=== PATIENT | male | born 1960 | race Caucasian/White ===

== ENCOUNTER → 2016-09-05 | Outpatient (CLI) | payer MEDICARE, OTHER ==
[2016-09-05 09:06] LABS: BUN/CREATININE RATIO 13 (0-10)
== END ==
LOC: LAB 08:02
PROVIDERS: Family Medicine
DX: E11.65 Type 2 diabetes mellitus with hyperglycemia (principal); E78.2 Mixed hyperlipidemia
CPT/HCPCS: 36415; 80053; 80061; 82043; 82570; 83036

== ENCOUNTER → 2016-10-31 | Outpatient (CLI) | payer MEDICARE, OTHER ==
[2016-10-31 09:54] LABS: BUN/CREATININE RATIO 19 (0-10)
== END ==
LOC: LAB 08:55
PROVIDERS: Family Medicine
DX: E11.65 Type 2 diabetes mellitus with hyperglycemia (principal)
CPT/HCPCS: 36415; 80048

== ENCOUNTER → 2020-06-03 | Outpatient (CLI) | payer MEDICARE, SELFPAY ==
[~2020-06-03] MED LIST: COUMADIN 5MG TAB5 MG PO; COUMADIN 7.5MG7.5 MG PO; ECOTRIN81 MG PO; GABAPENTIN300 MG PO; HUMALOG100 UNIT/1 SC; LIPITOR TAB 2020 MG PO; LOPRESSOR50 MG PO; NITROGLYCERIN0.4 MG PO; OMEPRAZOLE20 M1 PO; PROVENTIL HFA6.7 GM INH; SYMBICORT 160-1 INHA INH; TOPAMAX50 MG PO; TRESIBA100 UNIT/1 SC; TRULICITY1.5 MG/0.5 SC; TYLENOL 325MG325 MG PO; VISTARIL25 MG PO
== END ==
LOC: KOH-I 12:50
DX: R59.0 Localized enlarged lymph nodes (principal)
CPT/HCPCS: 76536

== ENCOUNTER → 2020-08-19 | Outpatient (CLI) | payer MEDICARE, SELFPAY | LOC: WCC 09:39 | PROC: 0JB70ZZ Excision of Back Subcutaneous Tissue and Fascia, Open Approach (ICD-10-PCS; principal; 2020-08-19) | DX: I96 Gangrene, not elsewhere classified (principal); L89.312 Pressure ulcer of right buttock, stage 2; E11.52 Type 2 diabetes mellitus with diabetic peripheral angiopathy with gangrene; E11.628 Type 2 diabetes mellitus with other skin complications; I10 Essential (primary) hypertension; J44.9 Chronic obstructive pulmonary disease, unspecified; G47.30 Sleep apnea, unspecified; L89.152 Pressure ulcer of sacral region, stage 2; E11.36 Type 2 diabetes mellitus with diabetic cataract; H26.9 Unspecified cataract; I25.10 Atherosclerotic heart disease of native coronary artery without angina pectoris; I25.2 Old myocardial infarction; E11.40 Type 2 diabetes mellitus with diabetic neuropathy, unspecified; M19.90 Unspecified osteoarthritis, unspecified site; I48.91 Unspecified atrial fibrillation; E66.01 Morbid (severe) obesity due to excess calories; Z68.35 Body mass index [BMI] 35.0-35.9, adult; Z79.2 Long term (current) use of antibiotics; Z79.4 Long term (current) use of insulin; Z79.891 Long term (current) use of opiate analgesic; Z79.899 Other long term (current) drug therapy; Z87.891 Personal history of nicotine dependence | CPT/HCPCS: G0463 ==

== ENCOUNTER → 2020-08-28 | Outpatient (CLI) | payer MEDICARE | LOC: WCC 08:04 | DX: E11.622 Type 2 diabetes mellitus with other skin ulcer (principal); L89.312 Pressure ulcer of right buttock, stage 2; I10 Essential (primary) hypertension; J44.9 Chronic obstructive pulmonary disease, unspecified; E66.01 Morbid (severe) obesity due to excess calories; G47.30 Sleep apnea, unspecified; Z79.4 Long term (current) use of insulin ==

== ENCOUNTER → 2020-09-08 | Outpatient (CLI) | payer MEDICARE, SELFPAY | LOC: WCC 13:28 | PROC: 0JB90ZZ Excision of Buttock Subcutaneous Tissue and Fascia, Open Approach (ICD-10-PCS; principal; 2020-09-08) | DX: I96 Gangrene, not elsewhere classified (principal); L89.312 Pressure ulcer of right buttock, stage 2; E11.52 Type 2 diabetes mellitus with diabetic peripheral angiopathy with gangrene; E11.628 Type 2 diabetes mellitus with other skin complications; I10 Essential (primary) hypertension; J44.9 Chronic obstructive pulmonary disease, unspecified; G47.30 Sleep apnea, unspecified; E11.36 Type 2 diabetes mellitus with diabetic cataract; H26.9 Unspecified cataract; I49.9 Cardiac arrhythmia, unspecified; I25.10 Atherosclerotic heart disease of native coronary artery without angina pectoris; I25.2 Old myocardial infarction; E11.40 Type 2 diabetes mellitus with diabetic neuropathy, unspecified; M19.90 Unspecified osteoarthritis, unspecified site; E66.01 Morbid (severe) obesity due to excess calories; Z68.35 Body mass index [BMI] 35.0-35.9, adult; Z79.2 Long term (current) use of antibiotics; Z79.899 Other long term (current) drug therapy; Z79.4 Long term (current) use of insulin ==

== ENCOUNTER → 2020-09-18 | Outpatient (CLI) | payer MEDICARE, OTHER | LOC: WCC 10:15 | DX: E11.628 Type 2 diabetes mellitus with other skin complications (principal); L89.312 Pressure ulcer of right buttock, stage 2; I10 Essential (primary) hypertension; E66.01 Morbid (severe) obesity due to excess calories; J44.9 Chronic obstructive pulmonary disease, unspecified; G47.30 Sleep apnea, unspecified; Z79.4 Long term (current) use of insulin | CPT/HCPCS: G0463 ==

== ENCOUNTER → 2020-09-25 | Outpatient (CLI) | payer MEDICARE, SELFPAY, OTHER | LOC: WCC 09:56 | DX: L89.312 Pressure ulcer of right buttock, stage 2 (principal); E11.628 Type 2 diabetes mellitus with other skin complications; E66.01 Morbid (severe) obesity due to excess calories; I10 Essential (primary) hypertension; J44.9 Chronic obstructive pulmonary disease, unspecified; G47.30 Sleep apnea, unspecified; Z79.4 Long term (current) use of insulin; Z68.35 Body mass index [BMI] 35.0-35.9, adult | CPT/HCPCS: G0463 ==

== ENCOUNTER → 2020-10-21 | Outpatient (CLI) | payer MEDICARE ==
[2020-10-21 13:49] LABS: BUN/CREATININE RATIO 26 (0-10)
== END ==
LOC: LAB 11:28
PROVIDERS: Family Medicine
DX: Z13.21 Encounter for screening for nutritional disorder (principal); E11.9 Type 2 diabetes mellitus without complications; E78.2 Mixed hyperlipidemia; I10 Essential (primary) hypertension; K21.9 Gastro-esophageal reflux disease without esophagitis; Z79.899 Other long term (current) drug therapy
CPT/HCPCS: 36415; 80053; 80061; 82043; 82570; 82607; 83036; 83735

== ENCOUNTER → 2021-01-19 | Outpatient (CLI) | payer MEDICARE | LOC: EXRD 13:00 | DX: R59.1 Generalized enlarged lymph nodes (principal) | CPT/HCPCS: 76536 ==

== ENCOUNTER → 2021-02-16 | Outpatient (CLI) | payer MEDICARE ==
[2021-02-16 15:27] LABS: BUN/CREATININE RATIO 13 (0-10)
== END ==
LOC: LAB 13:38
PROVIDERS: Family Medicine
DX: E55.9 Vitamin D deficiency, unspecified (principal); E78.2 Mixed hyperlipidemia; E11.9 Type 2 diabetes mellitus without complications; I10 Essential (primary) hypertension; K21.9 Gastro-esophageal reflux disease without esophagitis; R35.1 Nocturia; Z12.5 Encounter for screening for malignant neoplasm of prostate; Z79.4 Long term (current) use of insulin; Z79.899 Other long term (current) drug therapy
CPT/HCPCS: 36415; 80053; 80061; 82607; 83036; 83735; G0103

== ENCOUNTER → 2021-04-06 | Outpatient (CLI) | payer MEDICARE | LOC: KOH-I 10:04 | DX: R59.1 Generalized enlarged lymph nodes (principal) | CPT/HCPCS: 76536 ==

== ENCOUNTER → 2021-04-19 | Outpatient (CLI) | payer MEDICARE ==
[2021-04-19 12:04] LABS: BUN/CREATININE RATIO 17 (0-10)
== END ==
LOC: LAB 09:46
PROVIDERS: Family Medicine
DX: E55.9 Vitamin D deficiency, unspecified (principal); E78.2 Mixed hyperlipidemia; E11.9 Type 2 diabetes mellitus without complications; I10 Essential (primary) hypertension; K21.9 Gastro-esophageal reflux disease without esophagitis; Z12.5 Encounter for screening for malignant neoplasm of prostate; Z79.899 Other long term (current) drug therapy; R35.1 Nocturia
CPT/HCPCS: 36415; 80053; 80061; 82607; 83036; 83735; G0103

== ENCOUNTER → 2021-04-27 | Outpatient (CLI) | payer MEDICARE ==
[2021-04-27 10:31] LABS: BUN/CREATININE RATIO 14 (0-10)
== END ==
LOC: LAB 08:42
PROVIDERS: Internal Medicine Nephrology
DX: N17.9 Acute kidney failure, unspecified (principal); E78.5 Hyperlipidemia, unspecified
CPT/HCPCS: 36415; 80053; 82550; 82570; 84156

== ENCOUNTER → 2021-07-27 | Outpatient (CLI) | payer MEDICARE | LOC: KOH-I 12:44 | DX: R59.1 Generalized enlarged lymph nodes (principal) | CPT/HCPCS: 76536 ==

== ENCOUNTER 2021-08-02 13:41 | Inpatient (IN) | payer MEDICARE ==
[~2021-08-02] VITALS: Ht 185.4 cm; Wt 117.9 kg
[~2021-08-02 13:41] MED LIST changes: -COUMADIN 5MG TAB5 MG PO; -GABAPENTIN300 MG PO; +GABAPENTIN600 MG PO; -HUMALOG100 UNIT/1 SC; +HUMALOG100 UNIT/1 SQ; +LOPRESSOR 25 MG25 MG PO; -LOPRESSOR50 MG PO; -TRESIBA100 UNIT/1 SC; +TRESIBA100 UNIT/1 SQ; -TRULICITY1.5 MG/0.5 SC; +TRULICITY1.5 MG/0.5 SQ; +WARFARIN SODIUM5 MG PO
[2021-08-02 14:38] LABS: HEMOGLOBIN 14.4 gm/dl (14.0-17.5); RED BLOOD COUNT 4.19 M/UL (4.20-5.50); WHITE BLOOD COUNT 4.7 K/UL (4.5-11.0)
[2021-08-02 14:59] LABS: BUN/CREATININE RATIO 12 (0-10)
[2021-08-03 06:52] LABS: HEMOGLOBIN 12.5 gm/dl (14.0-17.5); WHITE BLOOD COUNT 3.9 K/UL (4.5-11.0)
[2021-08-03 06:54] LABS: RED BLOOD COUNT 3.75 M/UL (4.20-5.50)
[2021-08-03 07:16] LABS: BUN/CREATININE RATIO 11 (0-10)
[2021-08-04 06:51] LABS: HEMOGLOBIN 11.8 gm/dl (14.0-17.5); RED BLOOD COUNT 3.55 M/UL (4.20-5.50)
[2021-08-04 06:53] LABS: WHITE BLOOD COUNT 2.6 K/UL (4.5-11.0)
[2021-08-04 07:04] LABS: BUN/CREATININE RATIO 13 (0-10)
[2021-08-04] MEDS ORDERED: FLONASE 0.05% N16 GM (15:24)
[2021-08-04] MEDS ORDERED: AMLODIPINE BESYL5 MG PO (15:24)
[2021-08-04] MEDS ORDERED: DOCUSATE SODIU100 MG PO (15:25)
[2021-08-04] MEDS ORDERED: VITAMIN D31250 MCG PO (15:25)
[2021-08-04] MEDS ORDERED: LOSARTAN POTAS100 MG PO (15:27)
[2021-08-04] MEDS ORDERED: ACETAMINOPHEN-1 EAC1 PO (15:27)
[2021-08-05 02:40] LABS: HEMOGLOBIN 11.5 gm/dl (14.0-17.5); RED BLOOD COUNT 3.48 M/UL (4.20-5.50)
[2021-08-05 02:42] LABS: WHITE BLOOD COUNT 3.4 K/UL (4.5-11.0)
[2021-08-05 03:17] LABS: BUN/CREATININE RATIO 17 (0-10)
[2021-08-06 02:34] LABS: HEMOGLOBIN 11.3 gm/dl (14.0-17.5); RED BLOOD COUNT 3.46 M/UL (4.20-5.50)
[2021-08-06 02:54] LABS: BUN/CREATININE RATIO 16 (0-10)
[2021-08-06] MEDS ORDERED: COLACE100 MG PO (13:05)
[2021-08-06] MEDS ORDERED: PERCOCET 5/325 T1 EA PO (13:05)
[2021-08-07 03:36] LABS: HEMOGLOBIN 11.7 gm/dl (14.0-17.5); RED BLOOD COUNT 3.56 M/UL (4.20-5.50)
[2021-08-07 03:38] LABS: WHITE BLOOD COUNT 6.5 K/UL (4.5-11.0)
[2021-08-07 03:59] LABS: BUN/CREATININE RATIO 19 (0-10)
[2021-08-07] MEDS ORDERED: MACROBID 100 M100 M1 PO (14:14)
== END 2021-08-07 17:06 | disposition home or self-care (01) | DRG 347 ==
LOC: ER1 13:41 → CDU 20:40 → MED SURG 4 20:40
PROVIDERS: Internal Medicine; Physician Assistant; ADMIT Internal Medicine
PROC: 8E0ZXY6 Isolation (ICD-10-PCS; principal; 2021-08-03)
PROC: XW033E5 Introduction of Remdesivir Anti-infective into Peripheral Vein, Percutaneous Approach, New Technology Group 5 (ICD-10-PCS; 2021-08-03)
PROC: 3E0333Z Introduction of Anti-inflammatory into Peripheral Vein, Percutaneous Approach (ICD-10-PCS; 2021-08-03)
PROC: 3E03329 Introduction of Other Anti-infective into Peripheral Vein, Percutaneous Approach (ICD-10-PCS; 2021-08-03)
PROC: 0DJD8ZZ Inspection of Lower Intestinal Tract, Via Natural or Artificial Opening Endoscopic (ICD-10-PCS; 2021-08-05)
PROC: 06BY0ZC Excision of Hemorrhoidal Plexus, Open Approach (ICD-10-PCS; 2021-08-06)
DX: K64.4 Residual hemorrhoidal skin tags (principal); A41.9 Sepsis, unspecified organism; U07.1 COVID-19; J12.82 Pneumonia due to coronavirus disease 2019; D62 Acute posthemorrhagic anemia; N30.00 Acute cystitis without hematuria; K64.8 Other hemorrhoids; K57.30 Diverticulosis of large intestine without perforation or abscess without bleeding; I10 Essential (primary) hypertension; E87.6 Hypokalemia; E78.5 Hyperlipidemia, unspecified; E11.65 Type 2 diabetes mellitus with hyperglycemia; T38.0X5A Adverse effect of glucocorticoids and synthetic analogues, initial encounter; B95.2 Enterococcus as the cause of diseases classified elsewhere; E66.01 Morbid (severe) obesity due to excess calories; I48.0 Paroxysmal atrial fibrillation; R79.1 Abnormal coagulation profile; Z79.01 Long term (current) use of anticoagulants; Z79.82 Long term (current) use of aspirin; Z90.49 Acquired absence of other specified parts of digestive tract; Z80.3 Family history of malignant neoplasm of breast; Z68.34 Body mass index [BMI] 34.0-34.9, adult
CPT/HCPCS: 36415; 71045; 80048; 80053; 81001; 82272; 82962; 83605; 83690; 85018; 85025; 85027; 85610; 87040; 87077; 87086; 87186; 93005; 94640; 94664; 94760; 96374; 96375; 99285; J0248; J0696; J1100; J1170; J2001; J2405; J2704; J3010; J3370; J7030; J7040; J7070; J7120; Q9967; U0002

== ENCOUNTER → 2021-08-24 | Outpatient (CLI) | payer MEDICARE ==
[~2021-08-24] MED LIST changes: +ACETAMINOPHEN-1 EAC1 PO; +AMLODIPINE BESYL5 MG PO; +COLACE100 MG PO; +DOCUSATE SODIU100 MG PO; +FLONASE 0.05% N16 GM; +LOSARTAN POTAS100 MG PO; +MACROBID 100 M100 M1 PO; +PERCOCET 5/325 T1 EA PO; +VITAMIN D31250 MCG PO
[2021-08-24 15:10] LABS: BUN/CREATININE RATIO 18 (0-10)
== END ==
LOC: LAB 14:14
PROVIDERS: Internal Medicine Nephrology
DX: N17.9 Acute kidney failure, unspecified (principal)
CPT/HCPCS: 36415; 80053; 82570; 84156

== ENCOUNTER → 2021-08-26 | Outpatient (CLI) | payer MEDICARE ==
[2021-08-26 15:12] LABS: HEMOGLOBIN 13.4 gm/dl (14.0-17.5); RED BLOOD COUNT 3.94 M/UL (4.20-5.50); WHITE BLOOD COUNT 7.5 K/UL (4.5-11.0)
[2021-08-26 16:03] LABS: BUN/CREATININE RATIO 18 (0-10)
[2021-08-27 10:16] LABS: CREATININE, URINE 112.4 mg/dL (Not Estab.)
== END ==
LOC: LAB 14:04
PROVIDERS: Family Medicine
DX: E78.2 Mixed hyperlipidemia (principal); E55.9 Vitamin D deficiency, unspecified; E11.9 Type 2 diabetes mellitus without complications
CPT/HCPCS: 36415; 80053; 80061; 82043; 82570; 83735; 85027

== ENCOUNTER → 2021-09-06 | Outpatient (CLI) | payer MEDICARE ==
[2021-09-06 08:27] LABS: BUN/CREATININE RATIO 17 (0-10)
== END ==
LOC: LAB 07:41
PROVIDERS: Family Medicine
DX: E87.0 Hyperosmolality and hypernatremia (principal)
CPT/HCPCS: 36415; 80048

== ENCOUNTER → 2021-12-10 | Outpatient (CLI) | payer MEDICARE ==
[2021-12-10 09:16] LABS: RED BLOOD COUNT 4.04 M/UL (4.20-5.50); WHITE BLOOD COUNT 9.6 K/UL (4.5-11.0)
[2021-12-10 09:42] LABS: BUN/CREATININE RATIO 22 (0-10)
== END ==
LOC: LAB 08:09
PROVIDERS: Family Medicine
DX: M79.675 Pain in left toe(s) (principal); E55.9 Vitamin D deficiency, unspecified; E78.2 Mixed hyperlipidemia; Z79.899 Other long term (current) drug therapy
CPT/HCPCS: 36415; 73630; 80053; 80061; 82607; 83735; 85027

== ENCOUNTER → 2022-01-18 | Outpatient (CLI) | payer MEDICARE ==
[2022-01-18 10:02] LABS: BUN/CREATININE RATIO 15 (0-10)
== END ==
LOC: LAB 08:45
PROVIDERS: Internal Medicine Nephrology
DX: R80.9 Proteinuria, unspecified (principal)
CPT/HCPCS: 36415; 80053; 82570; 84156